=== PATIENT | female | born 1980 | race Caucasian/White ===

== ENCOUNTER 2019-10-17 10:31 | Emergency (ER) | payer SELFPAY ==
--- NOTE | 2019-10-17 11:30 | ER ---
Nurse's Notes [facility] Name: Belkis Holliday Age: 39 yrs Sex: Female : 1980 Arrival Date: 10/17/2019 Time: 10:34 Bed 16 Private MD: Diagnosis: Dental caries;Dental root caries;Cracked tooth Presentation: 10/16 10:46 Chief complaint: Patient states: facial swelling to left side of face that began this aa5 morning. Pt states "my left ear feels clogged and I have a slight cough from allergies". 10:46 Coronavirus screen: Patient reports a cough. Patient denies shortness of breath or aa5 difficulty breathing. Patient denies measured and/or subjective temperature greater than 100.4F prior to today's visit. Patient denies travel on a cruise ship or to a country the [facility] currently lists as an affected area. Patient denies contact with known and/or suspected case of COVID-19. Ebola Screen: Patient negative for fever greater than or equal to 101.5 degrees Fahrenheit, and additional compatible Ebola Virus Disease symptoms. Onset: The symptoms/episode began/occurred 0100 hour(s) ago. Anaphylaxis evaluation, no signs or symptoms of anaphylaxis were noted. Initial Sepsis Screen: Does the patient meet any 2 criteria? HR > 90 bpm. Does the patient have a suspected source of infection? No. Patient's initial sepsis screen is negative. Risk Assessment: Do you want to hurt yourself or someone else? Patient reports no desire to harm self or others. Onset of symptoms was October 17, 2019. 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 10/15/2019 ca1 Historical: - Allergies: 10:54 Sulfa (Sulfonamide Antibiotics); aa5 - PMHx: 10:54 TBI; aa5 - PSHx: 10:54 ; aa5 - Immunization history:: Flu vaccine is not up to date. - Social history:: Smoking status: Patient reports the use of cigarette tobacco products, smokes one-half pack cigarettes per day. - Family history:: not pertinent. Screenin:02 Abuse screen: Denies threats or abuse. Denies injuries from another. Nutritional ca1 screening: No deficits noted. Tuberculosis screening: No symptoms or risk factors identified. Fall Risk None identified. Assessment: 11:03 General: Appears in no apparent distress. comfortable, Behavior is calm, cooperative, ca1 appropriate for age. Pain: Complains of pain in face Pain does not radiate. Pain currently is 4 out of 10 on a pain scale. Neuro: Level of Consciousness is awake, alert, obeys commands, Oriented to person, place, time, situation, Appropriate for age. Cardiovascular: Heart tones S1 S2 present Capillary refill < 3 seconds Patient's skin is warm and dry. Respiratory: Airway is patent Respiratory effort is even, unlabored, Respiratory pattern is regular, symmetrical, Breath sounds are clear bilaterally. GI: Abdomen is round non-distended, Bowel sounds present X 4 quads. Abd is soft and non tender X 4 quads. : No signs and/or symptoms were reported regarding the genitourinary system. EENT: Oral mucosa is moist. Dental caries noted in upper left second bicuspid (#13) Throat is clear Reports I have scheduled root canal on mu L upper tooth but they cancelled it with all that's going on. It's not hurting right now but it the swelling could be from my tooth. . Derm: Skin is intact, is healthy with good turgor, Skin is pink, warm \\T\\ dry. Derm: swelling on L side of face, L lower eye lid, L cheek, L lip. Musculoskeletal: Circulation, motion, and sensation intact. Capillary refill < 3 seconds. 11:40 Reassessment: Patient appears in no apparent distress at this time. Patient is alert, ca1 oriented x 3, equal unlabored respirations, skin warm/dry/pink. Vital Signs: 10:46 BP 105 / 71; Pulse 94; Resp 16 S; Pulse Ox 97% on R/A; Weight 65.77 kg (R); Height 5 aa5 ft. 0 in. (152.40 cm) (R); Pain 0/10; 10:48 Temp 97.9(TE); aa5 11:40 BP 106 / 62; Pulse 95; Resp 17 S; Pulse Ox 99% on R/A; ca1 10:46 Body Mass Index 28.32 (65.77 kg, 152.40 cm) aa5 ED Course: 10:34 Patient arrived in ED. ag5 10:46 Arm band placed on. aa5 10:54 Triage completed. aa5 10:58 Yaneli Hsu, RN is Primary Nurse. ca1 11:02 Neo Loomis MD is Attending Physician. [facility] 11:02 Patient has correct armband on for positive identification. Bed in low position. Call ca1 light in reach. Side rails up X 1. Pulse ox on. NIBP on. 11:02 No provider procedures requiring assistance completed. Patient did not have IV access ca1 during this emergency room visit. 11:29 Nixon Stallworth DDS is Referral Physician. [facility] Administered Medications: 11:28 Drug: Clindamycin 300 mg Route: PO; ca1 11:40 Follow up: Response: Medication administered at discharge. ca1 11:29 Drug: Motrin 600 mg Route: PO; ca1 11:39 Follow up: Response: Medication administered at discharge. ca1 Outcome: : Discharge ordered by . [facility] 11:44 Discharged to home ambulatory. [facility] 11:44 Condition: good 11:44 Discharge instructions given to patient, Instructed on discharge instructions, follow up and referral plans. no drinking with medication, no driving heavy equipment, medication usage, Demonstrated understanding of instructions, follow-up care, medications, Prescriptions given X 2. 11:44 Patient left the ED. ca1 Signatures: Neo Loomis MD MD cha Calderon, Audri RN RN aa5 Yaneli Hsu RN RN [facility] Mohan Olguin ag5 Corrections: (The following items were deleted from the chart) 11:11 11:03 EENT: Oral mucosa is moist. Dental caries noted in upper left second bicuspid ca1 (#13) Reports I have scheduled root canal on mu L upper tooth but they cancelled it with all that's going on. It's not hurting right now but it the swelling could be from my tooth. . ca1
--- NOTE | 2019-10-17 11:31 | EDPHYS ---
Physician Documentation [facility] Name: Belkis Holliday Age: 39 yrs Sex: Female : 1980 Arrival Date: 10/17/2019 Time: 10:34 Bed 16 Private MD: NATHALIA Physician Neo Loomis HPI: 10/16 11:23 This 39 yrs old Female presents to ER via Ambulatory with complaints of tommy Facial Swelling. 11:23 The patient presents with broken tooth/teeth, pain, swelling. The problem is located in tommy the left buccal mucosa. Onset: The symptoms/episode began/occurred 3 day(s) ago. Duration: The symptoms are continuous, and are steadily getting worse. Modifying factors: The symptoms are alleviated by nothing, the symptoms are aggravated by air, chewing, cold fluids, food, talking. Associated signs and symptoms: The patient has no apparent associated signs or symptoms. The patient has experienced similar episodes in the past, a few times. 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 - Social history:: Smoking status: Patient reports the use of cigarette tobacco products, smokes one-half pack cigarettes per day. - Family history:: not pertinent. ROS: 11:23 Constitutional: Negative for fever, chills, and weight loss, Eyes: Negative for injury, tommy pain, redness, and discharge, Neck: Negative for injury, pain, and swelling, Cardiovascular: Negative for chest pain, palpitations, and edema, Respiratory: Negative for shortness of breath, cough, wheezing, and pleuritic chest pain, Abdomen/GI: Negative for abdominal pain, nausea, vomiting, diarrhea, and constipation, Back: Negative for injury and pain, : Negative for injury, bleeding, discharge, and swelling, MS/Extremity: Negative for injury and deformity, Skin: Negative for injury, rash, and discoloration, Neuro: Negative for headache, weakness, numbness, tingling, and seizure, Psych: Negative for depression, anxiety, suicide ideation, homicidal ideation, and hallucinations, Allergy/Immunology: Negative for hives, rash, and allergies, Endocrine: Negative for neck swelling, polydipsia, polyuria, polyphagia, and marked weight changes, Hematologic/Lymphatic: Negative for swollen nodes, abnormal bleeding, and unusual bruising. 11:23 ENT: Positive for dental pain, Teeth pain NO TRISMUS. Exam: 11:23 Constitutional: This is a well developed, well nourished patient who is awake, alert, tommy and in no acute distress. Eyes: Pupils equal round and reactive to light, extra-ocular motions intact. Lids and lashes normal. Conjunctiva and sclera are non-icteric and not injected. Cornea within normal limits. Periorbital areas with no swelling, redness, or edema. ENT: Nares patent. No nasal discharge, no septal abnormalities noted. Tympanic membranes are normal and external auditory canals are clear. Oropharynx with no redness, swelling, or masses, exudates, or evidence of obstruction, uvula midline. Mucous membranes moist. Neck: Trachea midline, no thyromegaly or masses palpated, and no cervical lymphadenopathy. Supple, full range of motion without nuchal rigidity, or vertebral point tenderness. No Meningismus. Chest/axilla: Normal chest wall appearance and motion. Nontender with no deformity. No lesions are appreciated. Cardiovascular: Regular rate and rhythm with a normal S1 and S2. No gallops, murmurs, or rubs. Normal PMI, no JVD. No pulse deficits. Respiratory: Lungs have equal breath sounds bilaterally, clear to auscultation and percussion. No rales, rhonchi or wheezes noted. No increased work of breathing, no retractions or nasal flaring. Abdomen/GI: Soft, non-tender, with normal bowel sounds. No distension or tympany. No guarding or rebound. No evidence of tenderness throughout. Back: No spinal tenderness. No costovertebral tenderness. Full range of motion. Skin: Warm, dry with normal turgor. Normal color with no rashes, no lesions, and no evidence of cellulitis. MS/ Extremity: Pulses equal, no cyanosis. Neurovascular intact. Full, normal range of motion. Neuro: Awake and alert, GCS 15, oriented to person, place, time, and situation. Cranial nerves II-XII grossly intact. Motor strength 5/5 in all extremities. Sensory grossly intact. Cerebellar exam normal. Normal gait. Psych: Awake, alert, with orientation to person, place and time. Behavior, mood, and affect are within normal limits. 11:23 Head/face: Noted is swelling, tenderness, that is moderate, of the left cheek, mouth and left jaw. Vital Signs: 10:46 BP 105 / 71; Pulse 94; Resp 16 S; Pulse Ox 97% on R/A; Weight 65.77 kg (R); Height 5 aa5 ft. 0 in. (152.40 cm) (R); Pain 0/10; 10:48 Temp 97.9(TE); aa5 11:40 BP 106 / 62; Pulse 95; Resp 17 S; Pulse Ox 99% on R/A; ca1 10:46 Body Mass Index 28.32 (65.77 kg, 152.40 cm) aa5 MDM: 11:02 Patient medically screened. tommy 11:27 Differential diagnosis: dental caries, dental abscess, gingivostomatitis. Data tommy reviewed: vital signs, nurses notes. Data interpreted: court monitor: not applicable for this patient encounter. Pulse oximetry: is not applicable for this patient encounter. is 97 %. ED course: hx fx left upper 3rd molar , sts , no trismus. Administered Medications: 11:28 Drug: Clindamycin 300 mg Route: PO; ca1 11:40 Follow up: Response: Medication administered at discharge. ca1 11:29 Drug: Motrin 600 mg Route: PO; ca1 11:39 Follow up: Response: Medication administered at discharge. ca1 Disposition: 10/17/19 11:29 Discharged to Home. Impression: Dental caries, Dental root caries, Cracked tooth. - Condition is Stable. - Discharge Instructions: Dental Caries, Adult, Dental Pain, Tooth Injuries, Dental Pain, [id number], Diet and Dental Disease. - Prescriptions for Clindamycin HCl 300 mg Oral Capsule - take 1 capsule by ORAL route every 6 hours for 7 days; 28 capsule. Tylenol- Codeine #3 300-30 mg Oral Tablet - take 2 tablets by ORAL route every 6 hours As needed; 20 tablet. - Medication Reconciliation Form, Thank You Letter, Antibiotic Education, Prescription Opioid Use, Work release form form. - Follow up: Private Physician; When: 1 - 2 days; Reason: Recheck today's complaints, Continuance of care, Re-evaluation by your physician. Follow up: Nixon Stallworth DDS; When: 1 - 2 days; Reason: Recheck today's complaints, Continuance of care, Re-evaluation by your physician. - Problem is new. - Symptoms have improved. Signatures: Neo Loomis MD MD cha Calderon, Audri, RN RN aa5 Yaneli Hsu RN RN ca1 Corrections: (The following items were deleted from the chart) 11:44 11:29 10/17/2019 11:29 Discharged to Home. Impression: Dental caries; Dental root ca1 caries; Cracked tooth. Condition is Stable. Forms are Medication Reconciliation Form, Thank You Letter, Antibiotic Education, Prescription Opioid Use. Follow up: Private Physician; When: 1 - 2 days; Reason: Recheck today's complaints, Continuance of care, Re-evaluation by your physician. Follow up: Nixon Stallworth; When: 1 - 2 days; Reason: Recheck today's complaints, Continuance of care, Re-evaluation by your physician. Problem is new. Symptoms have improved. tommy
[2019-10-17] MEDS ORDERED: IBUPROFEN 200 MG TAB PO ONE (11:35)
[2019-10-17] MEDS ORDERED: IBUPROFEN 400 MG TAB ONE (11:35)
[2019-10-17 11:52] VITALS: TEMP 97.9
[2019-10-17 11:54] VITALS: BP 106/62; O2SAT 99
== END 2019-10-17 11:44 | disposition home or self-care (01) ==
LOC: ER 10:31
DX: K02.7 Dental root caries (principal); K03.81 Cracked tooth; F17.210 Nicotine dependence, cigarettes, uncomplicated; Z88.2 Allergy status to sulfonamides; Z87.820 Personal history of traumatic brain injury
CPT/HCPCS: 99283

== ENCOUNTER 2022-12-27 17:48 | Emergency (ER) | payer SELFPAY ==
--- OUTSIDE RECORDS SUMMARY | 2022-12-27 17:50 | XMS REPORT | Continuity of Care Document ---
:1980 Author Organization [facility] t Address [address] [place] [address] Care Team Providers Name Role Phone ADEEL GONZALEZ Primary Care Physician Unavailable CARMELA FNILEY Attending Clinician Unavailable ANASTASIIA RAMIREZ Admitting Clinician Unavailable Problems This patient has no known problems. Allergies, Adverse Reactions, Alerts Allergy Allergy Status Severity Reaction(s) Onset Inactive Treating Comm ents Source Name Type Date Date Clinician SULFA Drug Active Unknown-[facility] ers ([facility] Class 2-12 it[facility] 00:00: [place] [facility]TIBIOT 00 [facility]) Branch Medications This patient has no known medications. Procedures This patient has no known procedures. Encounters Start End Encounter Admission Attending Care Care Encounter Source Date/Time Date/Time Type Type Clinicians Facility Department ID 2019-11-20 2019-11-21 Emergency X DEJAN FINLEY ERT [id number] [facility] 22:43[facility]56 [facility]10[facility]00 [facility] This patient has no known results.
[2022-12-27] MEDS ORDERED: LIDOCAINE 1% W/EPI 1:100,000 50 ML MDV ONE (19:36)
[2022-12-27] MEDS ORDERED: TDAP (DIPHTH,PERTUSS(ACELL),TET VAC) 0.5 ML VIAL IMVAC ONE (19:37)
--- NOTE | 2022-12-27 20:07 | ER ---
Nurse's Notes [facility] Name: Belkis Holliday Age: 42 yrs Sex: Female : 1980 Arrival Date: 12/27/2022 Time: 17:48 Bed 19 Private MD: Diagnosis: Left lower extremity laceration Presentation: 12/27 18:20 Chief complaint: Patient states: Glass cut L leg at work 45 min [employer]. <5 cm laceration, ll1 bleeding controlled. Coronavirus screen: Vaccine status: Patient reports being unvaccinated. Client denies travel out of the [place] in the last 14 days. At this time, the client does not indicate any symptoms associated with coronavirus-19. Ebola Screen: Patient denies travel to an Ebola-affected area in the 21 days before illness onset. Initial Sepsis Screen: Does the patient meet any 2 criteria? No. Patient's initial sepsis screen is negative. Does the patient have a suspected source of infection? Yes: Skin breakdown/wound. Risk Assessment: Do you want to hurt yourself or someone else? Patient reports no desire to harm self or others. Onset of symptoms was December 27, 2022. 18:20 Method Of Arrival: Ambulatory ll1 18:20 Acuity: CICI 4 ll1 Triage Assessment: 18:21 General: Appears uncomfortable, Behavior is calm, cooperative, appropriate for age. ll1 Pain: Complains of pain in left leg Quality of pain is described as aching. Derm: Reports laceration L thigh area. Musculoskeletal: Circulation, motion, and sensation intact. Capillary refill < 3 seconds. Injury Description: Laceration. Historical: - Allergies: 18:19 Sulfa (Sulfonamide Antibiotics); ll1 18:19 promethazine HCl; ll1 - PMHx: 18:19 TBI; Asthma; ll1 - PSHx: 18:19 section; D\T\C; ll1 - Immunization history:: Client reports having NOT received the Covid vaccine. Last tetanus immunization: > 10 years ago. - Social history:: Smoking status: Reported history of juuling and/or vaping. Screenin:30 [facility] ED Fall Risk Assessment (Adult) History of falling in the last 3 months, nj1 including since admission No falls in past 3 months (0 pts) Confusion or Disorientation No (0 pts) Intoxicated or Sedated No (0 pts) Impaired Gait No (0 pts) Mobility Assist Device Used No (0 pt) Altered Elimination No (0 pt) Score/Fall Risk Level 0 - 2 = Low Risk Oriented to surroundings, Maintained a safe environment, Hourly rounding (assess needs \T\ fall precautionary measures) done. Abuse screen: Denies threats or abuse. Denies injuries from another. Nutritional screening: On. Tuberculosis screening: No symptoms or risk factors identified. Assessment: 19:30 General: Appears in no apparent distress. comfortable, Behavior is calm, cooperative, nj1 appropriate for age. Neuro: Level of Consciousness is awake, alert, obeys commands, Oriented to person, place, time, situation. Cardiovascular: Patient's skin is warm and dry. Respiratory: Airway is patent Respiratory effort is even, unlabored. 19:30 Derm: Wound noted lateral aspect of left calf. Injury Description: Laceration sustained nj1 to lateral aspect of left calf is 2.6 to 7.5 cm long. Vital Signs: 18:20 BP 127 / 73; Pulse 84; Resp 16; Temp 97.2; Pulse Ox 100% ; Weight 72.57 kg; Height 5 ll1 ft. 0 in. ; Pain 7/10; 18:20 Body Mass Index 31.25 (72.57 kg, 152.4 cm) 1 18:20 Pain Scale: Adult 1 ED Course: 17:52 Patient arrived in ED. im 18:16 Mekhi Paredes PA is PHCP. [facility] 18:16 Neo Loomis MD is Attending Physician. [facility] 18:22 Triage completed. [facility] 18:22 Arm band placed on. [facility] 19:18 Justa Do, HAIM is Primary Nurse. nj1 19:30 Patient has correct armband on for positive identification. Bed in low position. Call [facility] light in reach. Adult w/ patient. 19:30 Provided Education on: Fall precautions. de1 19:30 No provider procedures requiring assistance completed. nj1 20:15 Patient did not have IV access during this emergency room visit. nj1 20:15 Wound care: to laceration located on lateral aspect of left calf was dressed with Non [facility] adherent pad and kerlix. Administered Medications: 19:30 Drug: Lidocaine-Epinephrine Infiltration -1%: (1:100,000) 20 ml {Note: Given to J danielito1 Reggie AMOS for administration.} Volume: 20 ml; Route: Infiltration; 20:13 Follow up: Response: No adverse reaction nj 19:30 Drug: Boostrix Tdap IM 0.5 ml Route: IM; Site: left deltoid; nj1 20:13 Follow up: Response: No adverse reaction nj1 19:45 Not Given (Not availablee): Tetanus Toxoid,Adsorbed IM 0.5 ml IM once; Provide Vaccine [facility] Information Statement (VIS). Medication: 19:30 Vaccine Information Statement (VIS) provided today. Questions and/or concerns nj1 addressed. VIS edition date: January 21, 2021. Outcome: 20:06 Discharge ordered by . higinio 20:15 Discharged to home ambulatory, with friend. [facility] 20:15 Condition: stable 20:15 Discharge instructions given to patient, Instructed on discharge instructions, follow up and referral plans. wound care, Demonstrated understanding of instructions, follow-up care, wound care. 20:15 Patient left the ED. [facility] Signatures: Mekhi Paredes PA PA jmm Lewis, Lynsay, RN RN [facility] Justa Do RN RN nj1 [place] Corrections: (The following items were deleted from the chart) 20:37 20:37 Patient left the ED. [place] [id number]
--- NOTE | 2022-12-27 20:07 | EDPHYS ---
Physician Documentation [facility] Name: Belkis Holliday Age: 42 yrs Sex: Female : 1980 Arrival Date: 12/27/2022 Time: 17:48 Bed 19 Private MD: ED Physician Neo Loomis HPI: 12/27 20:03 This 42 yrs old Female presents to ER via Ambulatory with complaints of Leg Injury - jmm left leg cut with glass. 20:03 Onset: The symptoms/episode began/occurred acutely, just prior to arrival. Modifying jmm factors: The symptoms are alleviated by nothing. the symptoms are aggravated by nothing. Is a 42-year-old female with a history of traumatic brain injury, asthma the presents emerged department with complaints of a laceration to her left thigh which occurred after dropping glass. Denies other injury. Patient is not up-to-date on tetanus immunization. Historical: - Allergies: 18:19 Sulfa (Sulfonamide Antibiotics); ll1 18:19 promethazine HCl; ll1 - PMHx: 18:19 TBI; Asthma; ll1 - PSHx: 18:19 section; D\T\C; ll1 - Immunization history:: Client reports having NOT received the Covid vaccine. Last tetanus immunization: > 10 years ago. - Social history:: Smoking status: Reported history of juuling and/or vaping. ROS: 20:03 Constitutional: Negative for fever, chills, and weight loss, Cardiovascular: Negative jmm for chest pain, palpitations, and edema, Respiratory: Negative for shortness of breath, cough, wheezing, and pleuritic chest pain. 20:03 Skin: Positive for laceration(s). 20:03 All other systems are negative. Exam: 20:03 Constitutional: This is a well developed, well nourished patient who is awake, alert, jmm and in no acute distress. Head/Face: atraumatic. Eyes: EOMI, no conjunctival erythema appreciated ENT: Moist Mucus Membranes Neck: Trachea midline, Supple Chest/axilla: Normal chest wall appearance and motion. Cardiovascular: Regular rate and rhythm. No edema appreciated Respiratory: Normal respirations, no respiratory distress appreciated Abdomen/GI: Non distended Back: Normal ROM 20:03 Skin: 6 cm laceration noted to the left lower thigh. 20:03 Neuro: Orientation: is normal, Mentation: is normal, Memory: is normal. 20:03 Psych: Behavior/mood is pleasant, cooperative. Vital Signs: 18:20 BP 127 / 73; Pulse 84; Resp 16; Temp 97.2; Pulse Ox 100% ; Weight 72.57 kg; Height 5 ll1 ft. 0 in. ; Pain 7/10; 18:20 Body Mass Index 31.25 (72.57 kg, 152.4 cm) ll1 18:20 Pain Scale: Adult ll1 Laceration: 20:03 Wound Repair of 6cm ( 2.4in ) subcutaneous laceration to left leg. Distal jmm neuro/vascular/tendon intact. Anesthesia: Local anesthetic administered with 10 mls of 1% lidocaine w/ Epi. Wound prep: Simple cleansing with betadine by nv. Skin closed with 9 4-0 Prolene using simple sutures and sterile technique. Patient tolerated well. MDM: 18:25 Patient medically screened. m 20:03 Differential diagnosis: Laceration. Data reviewed: vital signs, nurses notes. jm Counseling: I had a detailed discussion with the patient and/or guardian regarding: the historical points, exam findings, and any diagnostic results supporting the discharge/admit diagnosis, the need for outpatient follow up, to return to the emergency department if symptoms worsen or persist or if there are any questions or concerns that arise at home. ED course: Patient given wound infection return precautions. 12/27 20:06 Order name: Wound Care; Complete Time: 20:36 [facility] Administered Medications: 19:30 Drug: Lidocaine-Epinephrine Infiltration -1%: (1:100,000) 20 ml {Note: Given to Rina AMOS for administration.} Volume: 20 ml; Route: Infiltration; 20:13 Follow up: Response: No adverse reaction nj 19:30 Drug: Boostrix Tdap IM 0.5 ml Route: IM; Site: left deltoid; nj 20:13 Follow up: Response: No adverse reaction [facility] 19:45 Not Given (Not availablee): Tetanus Toxoid,Adsorbed IM 0.5 ml IM once; Provide Vaccine [facility] Information Statement (VIS). Disposition Summary: 12/27/22 20:06 Discharge Ordered Location: Home [facility] Condition: Stable [facility] Diagnosis - Left lower extremity laceration [facility] Followup: [facility] - With: Private Physician - When: 10 - 14 days - Reason: Recheck today's complaints, Continuance of care, Re-evaluation by your physician Discharge Instructions: - Discharge Summary Sheet [facility]inio - Laceration Care, Adult [facility] Forms: - Medication Reconciliation Form [facility] - Thank You Letter [facility] - Antibiotic Education [facility] - Prescription Opioid Use [facility]io - Patient Portal [email or web address] [facility]inio Signatures: Mekhi Paredes PA PA jmm Lewis, Lynsay RN RN ll1 Justa Do RN RN nj1
[2022-12-27 22:52] VITALS: BP 127/73; TEMP 97.2; O2SAT 100
== END 2022-12-27 20:37 | disposition home or self-care (01) ==
LOC: ER 17:48
PROC: 0HQLXZZ Repair Left Lower Leg Skin, External Approach (ICD-10-PCS; principal; 2022-12-27)
DX: S81.812A Laceration without foreign body, left lower leg, initial encounter (principal)